=== PATIENT | female | born 1975 | race Caucasian/White ===

== ENCOUNTER 2018-07-12 15:55 | Emergency (ER) | payer MEDICAID ==
[2018-07-12] MEDS ORDERED: BUPR-474 PO (16:01)
--- NOTE | 2018-07-12 16:07 | ER Report ---
History and Physical Time Seen By MD: 16:00 Hx. of Stated Complaint: DIARRHEA FOR ONE WEEK. HPI/ROS CHIEF COMPLAINT: diarrhea HISTORY OF PRESENT ILLNESS: PT has had diarrhea for one week. Has one large episode a day. PT statse she has had no n/v. No abd pain. Pt statse she was at [facility] and felt light headed. Asked someone to get her something to drink and that person had ems come to check her out. PT was found to be tachycardic so they brought her to the emergency room. Pt has not had any recent travel. PT was on abx two weeks ago for bronchitis. pts bronchitis has improved. + chills no fever. REVIEW OF SYSTEMS: Constitutional: No fever, + chills. Eyes: No discharge. ENT: No sore throat. Cardiovascular: No chest pain, no palpitations. Respiratory: No cough, no shortness of breath. Gastrointestinal: No abdominal pain, no vomiting. + diarrhea Genitourinary: No hematuria. Musculoskeletal: No back pain. Skin: No rashes. Neurological: No headache. Allergies: Coded Allergies: No Known Drug Allergies (Unverified , 07/12/18) Home Meds Reported Medications Bupropion Hcl (WELLBUTRIN XL) 300 Mg Tab.er.24h, 300 MG PO QDAY, TAB 07/12/18 Past Medical/Surgical History Pmhx: htn, depression, bronchitis Pshx: tom pettit Reviewed Nurses Notes: Yes Old Medical Records Reviewed: Yes Hx Smoking: No Hx Alcohol Use: No Constitutional Vital Sign - Last 24 Hours 07/12/18 15:56 Temp 99.2 Pulse 109 Resp 18 B/P (MAP) 121/87 Pulse Ox 92 Physical Exam General Appearance: The patient is alert, has no immediate need for airway protection and no signs of toxicity. Eyes: Pupils equal and round no pallor or injection, EOMI ENT: no pharyngeal erythema or exudates, Mucous membranes are moist Respiratory: There are no retractions, lungs are clear to auscultation. Cardiovascular: + tachy but regular. pulses are equal and symmetrical Gastrointestinal: Abdomen is soft and non tender, no masses, bowel sounds normal, no guarding, no rigidity or rebound Neurological: Cranial nerves II-XII grossly intact, no sensory or motor loss Skin: Warm and dry, no rashes. Musculoskeletal: Neck is supple non tender, no vertebral tenderness Extremities are nontender, non swollen and have full range of motion. DIFFERENTIAL DIAGNOSIS: After history and physical exam differential diagnosis was considered for electrolyte abnl, dehydration, c.diff, infectious diarrhea Medical Decision Making Data Points Result Diagram: 07/12/18 1610 07/12/18 1610 Laboratory Hematology Test 07/12/18 16:10 Red Blood Count 5.64 M/uL (4.17-5.56) Mean Corpuscular Volume 65.7 fL (80.0-96.0) Mean Corpuscular Hemoglobin 21.0 pg (26.0-33.0) Mean Corpuscular Hemoglobin Concent 32.0 g/dL (32.0-36.0) Red Cell Distribution Width 17.4 % (11.5-14.5) Mean Platelet Volume 8.4 fL (7.2-11.1) Neutrophils (%) (Auto) 65.3 % (39.4-72.5) Lymphocytes (%) (Auto) 23.6 % (17.6-49.6) Monocytes (%) (Auto) 7.6 % (4.1-12.4) Eosinophils (%) (Auto) 2.1 % (0.4-6.7) Basophils (%) (Auto) 1.4 % (0.3-1.4) Nucleated RBC Relative Count (auto) 0.0 /100WBC Neutrophils # (Auto) 8.3 K/uL (2.0-7.4) Lymphocytes # (Auto) 3.0 K/uL (1.3-3.6) Monocytes # (Auto) 1.0 K/uL (0.3-1.0) Eosinophils # (Auto) 0.3 K/uL (0.0-0.5) Basophils # (Auto) 0.2 K/uL (0.0-0.1) Nucleated RBC Absolute Count (auto) 0.01 K/uL Peripheral Blood Smear Yes Y/N Sodium Level 137 mmol/L (137-145) Potassium Level 3.5 mmol/L (3.5-5.0) Chloride Level 101 mmol/L (98-107) Carbon Dioxide Level 22 mmol/L (22-31) Blood Urea Nitrogen 19 mg/dl (7-18) Creatinine 1.30 mg/dl (0.52-1.04) Glomerular Filtration Rate Calc 44.3 Random Glucose 92 mg/dl (75-110) Calcium Level 9.2 mg/dl (8.4-10.2) Total Bilirubin 0.6 mg/dl (0.2-1.3) Aspartate Amino Transf (AST/SGOT) 25 U/L (0-35) Alanine Aminotransferase (ALT/SGPT) 38 U/L (0-56) Alkaline Phosphatase 111 U/L (0-126) Total Protein 8.2 g/dl (6.3-8.2) Albumin 4.6 g/dl (3.5-5.0) Chemistry Test 07/12/18 16:10 White Blood Count 12.7 k/uL (4.5-11.0) Red Blood Count 5.64 M/uL (4.17-5.56) Hemoglobin 11.8 g/dL (12.0-16.0) Hematocrit 37.0 % (34.0-47.0) Mean Corpuscular Volume 65.7 fL (80.0-96.0) Mean Corpuscular Hemoglobin 21.0 pg (26.0-33.0) Mean Corpuscular Hemoglobin Concent 32.0 g/dL (32.0-36.0) Red Cell Distribution Width 17.4 % (11.5-14.5) Platelet Count 435 K/uL (150-450) Mean Platelet Volume 8.4 fL (7.2-11.1) Neutrophils (%) (Auto) 65.3 % (39.4-72.5) Lymphocytes (%) (Auto) 23.6 % (17.6-49.6) Monocytes (%) (Auto) 7.6 % (4.1-12.4) Eosinophils (%) (Auto) 2.1 % (0.4-6.7) Basophils (%) (Auto) 1.4 % (0.3-1.4) Nucleated RBC Relative Count (auto) 0.0 /100WBC Neutrophils # (Auto) 8.3 K/uL (2.0-7.4) Lymphocytes # (Auto) 3.0 K/uL (1.3-3.6) Monocytes # (Auto) 1.0 K/uL (0.3-1.0) Eosinophils # (Auto) 0.3 K/uL (0.0-0.5) Basophils # (Auto) 0.2 K/uL (0.0-0.1) Nucleated RBC Absolute Count (auto) 0.01 K/uL Peripheral Blood Smear Yes Y/N Glomerular Filtration Rate Calc 44.3 Calcium Level 9.2 mg/dl (8.4-10.2) Total Bilirubin 0.6 mg/dl (0.2-1.3) Aspartate Amino Transf (AST/SGOT) 25 U/L (0-35) Alanine Aminotransferase (ALT/SGPT) 38 U/L (0-56) Alkaline Phosphatase 111 U/L (0-126) Total Protein 8.2 g/dl (6.3-8.2) Albumin 4.6 g/dl (3.5-5.0) ED Course/Re-evaluation Clinical Indication for ER IV: Hydration, IV Access ED Course 07/12/2018 5:13:45 pm Pt has been unable to give a stool sample. Pt is starting to feel better with fluids. Will continue fluids since she is dehydrated. Pt would like to go home and fluids are running slow due to her current IV. Pt states she is okay with us starting a new IV so that they can possibly infuse quicker. If pt is unable to give a stool sample in the emergency room then we will send her home with collection containers. Decision to Disposition Date: Jul 12, 2018 Decision to Disposition Time: 18:00 Depart Departure Latest Vital Signs Vital Signs Date Time Temp Pulse Resp B/P (MAP) Pulse Ox O2 Delivery O2 Flow Rate FiO2 07/12/18 15:56 99.2 109 18 121/87 92 Impression: Primary Impression: Diarrhea Additional Impression: Dehydration Condition: Improved Disposition: HOME OR SELF-CARE Patient Instructions: Acute Diarrhea (GEN) Additional Instructions: It is important to stay hydrated when you have diarrhea. Drink plenty of water or gatorade. We are sending you home with a collection kit. Please bring back a sample to our lab so we can test it. Follow up with your doctor. Return as needed. Problem Qualifiers Primary Impression: Diarrhea Diarrhea type: unspecified type Qualified Codes: R19.7 - Diarrhea, unspecified MITCH FERRER DO Jul 12, 2018 16:07
[2018-07-12] MEDS ORDERED: NS(*) 0.9% 1000 ML BAG 1,000 ML IV ONE ×2 (16:10→16:40)
[2018-07-12 16:27] LABS: PLATELET COUNT, AUTOMATED 435 K/uL (150-450)
[2018-07-12 17:00] VITALS: BP 123/85
== END 2018-07-12 18:18 | disposition home or self-care (01) ==
LOC: ER 16:08
DX: R19.7 Diarrhea, unspecified (principal); E86.0 Dehydration
CPT/HCPCS: 85025; 96360; 96361; 99283; J7030; 82040; 82247; 82310; 82374; 82435; 82565; 82947; 84075; 84132; 84155; 84295; 84450; 84460; 84520

== ENCOUNTER → 2018-07-12 | Outpatient (CLI) | payer MEDICAID ==
[~2018-07-12] MED LIST: BUPR-474 PO
== END ==
LOC: AMB 15:23
PROVIDERS: ATTEND Nurse Practitioner
DX: R53.1 Weakness (principal); R00.0 Tachycardia, unspecified; R61 Generalized hyperhidrosis

== ENCOUNTER 2018-08-01 07:48 | Emergency (ER) | payer MEDICAID ==
[2018-08-01] MEDS ORDERED: OMEP20CA68 PO (07:57)
[2018-08-01] MEDS ORDERED: LISI-362 PO (07:57)
[2018-08-01] MEDS ORDERED: HYDR12.561 PO (07:57)
[2018-08-01] MEDS ORDERED: TRAZ300T17 PO (07:57)
[2018-08-01] MEDS ORDERED: BENZ100C4 PO (07:57)
[2018-08-01] MEDS ORDERED: AMOX-559 PO (07:57)
[2018-08-01] MEDS ORDERED: FLUO40CA76 PO (07:57)
[2018-08-01] MEDS ORDERED: PRED20TA6 PO (07:57)
[2018-08-01] MEDS ORDERED: ASPIRIN 81 MG CHEW PO ONE (08:00)
--- NOTE | 2018-08-01 08:21 | ER Report ---
History and Physical Time Seen By MD: 07:55 Hx. of Stated Complaint: "MY HEART IS FLUTTERING" X1 HOUR. REPORTS CONSTANT PAIN AND SOB. HPI/ROS CHIEF COMPLAINT: Palpitations HISTORY OF PRESENT ILLNESS: Patient is a 43-year-old female who presents emergency department with approximately 1-2 hours worth of palpitations and sensation of heart fluttering and chest. She has associated chest discomfort and some shortness of breath. Patient denies having similar symptoms in the past. She does admit to drinking a lot of caffeinated soda. She also admits to stress in her life. She recently moved here from [place] after being strange and from her . She has custody of her 4 children ranging from preteen 2 teenage. Its that her boys are "naughty" and causes her stress. Patient is also being treated for bronchitis with antibiotics and steroids. She has no primary care provider in the area as if he REVIEW OF SYSTEMS: Constitutional: No fever, no chills. Eyes: No discharge. ENT: No sore throat. Cardiovascular: Palpitations Respiratory: Dyspnea Gastrointestinal: No abdominal pain, no vomiting. Genitourinary: No hematuria. Musculoskeletal: No back pain. Skin: No rashes. Neurological: No headache. Allergies: Coded Allergies: No Known Drug Allergies (Unverified , 07/12/18) Home Meds Active Scripts Potassium Chloride (POTASSIUM CHLORIDE) 20 Meq Tab.er.prt, 20 MEQ PO QDAY for 30 Days, #30 TAB 0 Refills Prov:BENITO HER MD 08/01/18 Reported Medications Omeprazole Magnesium (OMEPRAZOLE MAGNESIUM) 20 Mg Capsule.dr, 20 MG PO BID, CAP 08/01/18 Amoxicillin/Pot Clav 875-125 Mg Tab (AUGMENTIN 875-125 TABLET) 1 Each Tablet, 1 TAB PO Q12H, TAB 08/01/18 Hydrochlorothiazide (HYDROCHLOROTHIAZIDE) 12.5 Mg Tablet, 1 TAB PO QDAY, TAB 08/01/18 Lisinopril (LISINOPRIL) 10 Mg Tablet, 10 MG PO QDAY, TAB 08/01/18 Prednisone (PREDNISONE) 20 Mg Tablet, 20 MG PO QDAY PRN for X5DAYS, TAB 08/01/18 Benzonatate 100 Mg Cap (TESSALON PERLE 100 MG CAP) 100 Mg Capsule, 200 MG PO TID, #15 CAP 08/01/18 Trazodone Hcl (TRAZODONE HCL) 300 Mg Tablet, 300 MG PO QHS 08/01/18 Fluoxetine Hcl (PROZAC) 40 Mg Capsule, 40 MG PO QDAY, CAPSULE 08/01/18 Bupropion Hcl (WELLBUTRIN XL) 300 Mg Tab.er.24h, 300 MG PO QDAY, TAB 07/12/18 Past Medical/Surgical History Past medical history for hypertension currently being treated for bronchitis, history of anxiety Hx Smoking: No Hx Alcohol Use: No Constitutional Vital Sign - Last 24 Hours 08/01/18 08/01/18 08/01/18 08/01/18 07:52 08:55 09:00 09:30 Temp 98.0 Pulse 80 87 Resp 16 14 B/P (MAP) 143/79 123/87 (99) 127/83 (98) 130/90 (103) Pulse Ox 96 O2 Delivery Room Air 08/01/18 08/01/18 08/01/18 10:00 10:30 11:00 Pulse 94 81 87 Resp 17 13 14 B/P (MAP) 144/106 (119) 124/77 (93) 115/61 (79) Pulse Ox 91 92 91 Physical Exam General/Constitutional: Patient is awake, alert, nontoxic and in no acute respiratory distress. Head: Normocephalic and atraumatic. Eyes: Conjunctival clear, . Sclera are clear and anicteric. Ears:External canals are clear. Tympanic membranes are clear with normal landmarks and light reflex. Nares: No rhinorrhea or bleeding. Turbinates are pink and moist. Oropharyngeal: Mucous membranes are moist. There is no pharyngeal erythema or exudate. There are no palatal petechiae. Uvula is midline and symmetrical. Neck: Supple, no adenopathy. Cardiovascular: Heart is regular rate and rhythm without audible murmurs, rubs or gallops. She does have occasional skipped beat Pulmonary: Lungs are clear to auscultation bilaterally. There are no wheezes, rales, or rhonchi. Chest rise is symmetrical Abdomen: Soft, nontender, no guarding or peritoneal signs. Extremities: No gross deformities, No peripheral cyanosis. Able to move all 4 extremities. Neuro: Alert and oriented X3, Skin: No rashes, skin is warm dry and well perfused. Medical Decision Making Data Points Result Diagram: 08/01/18 0811 08/01/18 0811 Laboratory Hematology Test 08/01/18 08:11 08/01/18 10:33 Red Blood Count 4.98 M/uL (4.17-5.56) Mean Corpuscular Volume 67.3 fL (80.0-96.0) Mean Corpuscular Hemoglobin 21.1 pg (26.0-33.0) Mean Corpuscular Hemoglobin Concent 31.3 g/dL (32.0-36.0) Red Cell Distribution Width 17.5 % (11.5-14.5) Mean Platelet Volume 8.6 fL (7.2-11.1) Neutrophils (%) (Auto) 57.7 % (39.4-72.5) Lymphocytes (%) (Auto) 33.5 % (17.6-49.6) Monocytes (%) (Auto) 6.1 % (4.1-12.4) Eosinophils (%) (Auto) 2.3 % (0.4-6.7) Basophils (%) (Auto) 0.4 % (0.3-1.4) Nucleated RBC Relative Count (auto) 0.0 /100WBC Neutrophils # (Auto) 5.8 K/uL (2.0-7.4) Lymphocytes # (Auto) 3.4 K/uL (1.3-3.6) Monocytes # (Auto) 0.6 K/uL (0.3-1.0) Eosinophils # (Auto) 0.2 K/uL (0.0-0.5) Basophils # (Auto) 0.0 K/uL (0.0-0.1) Nucleated RBC Absolute Count (auto) 0.00 K/uL Peripheral Blood Smear Yes Y/N Sodium Level 138 mmol/L (137-145) Potassium Level 2.9 mmol/L (3.5-5.0) Chloride Level 100 mmol/L (98-107) Carbon Dioxide Level 25 mmol/L (22-31) Blood Urea Nitrogen 15 mg/dl (7-18) Creatinine 1.00 mg/dl (0.52-1.04) Glomerular Filtration Rate Calc 60.0 Random Glucose 112 mg/dl (75-110) Calcium Level 8.9 mg/dl (8.4-10.2) Magnesium Level 1.9 mg/dl (1.7-2.2) Total Bilirubin 0.3 mg/dl (0.2-1.3) Aspartate Amino Transf (AST/SGOT) 18 U/L (0-35) Alanine Aminotransferase (ALT/SGPT) 24 U/L (0-56) Alkaline Phosphatase 73 U/L (0-126) Total Protein 6.9 g/dl (6.3-8.2) Albumin 3.9 g/dl (3.5-5.0) Human Chorionic Gonadotropin, Qual Negative (NEGATIVE) Troponin I < 0.012 ng/ml Chemistry Test 08/01/18 08:11 08/01/18 10:33 White Blood Count 10.1 k/uL (4.5-11.0) Red Blood Count 4.98 M/uL (4.17-5.56) Hemoglobin 10.5 g/dL (12.0-16.0) Hematocrit 33.5 % (34.0-47.0) Mean Corpuscular Volume 67.3 fL (80.0-96.0) Mean Corpuscular Hemoglobin 21.1 pg (26.0-33.0) Mean Corpuscular Hemoglobin Concent 31.3 g/dL (32.0-36.0) Red Cell Distribution Width 17.5 % (11.5-14.5) Platelet Count 341 K/uL (150-450) Mean Platelet Volume 8.6 fL (7.2-11.1) Neutrophils (%) (Auto) 57.7 % (39.4-72.5) Lymphocytes (%) (Auto) 33.5 % (17.6-49.6) Monocytes (%) (Auto) 6.1 % (4.1-12.4) Eosinophils (%) (Auto) 2.3 % (0.4-6.7) Basophils (%) (Auto) 0.4 % (0.3-1.4) Nucleated RBC Relative Count (auto) 0.0 /100WBC Neutrophils # (Auto) 5.8 K/uL (2.0-7.4) Lymphocytes # (Auto) 3.4 K/uL (1.3-3.6) Monocytes # (Auto) 0.6 K/uL (0.3-1.0) Eosinophils # (Auto) 0.2 K/uL (0.0-0.5) Basophils # (Auto) 0.0 K/uL (0.0-0.1) Nucleated RBC Absolute Count (auto) 0.00 K/uL Peripheral Blood Smear Yes Y/N Glomerular Filtration Rate Calc 60.0 Calcium Level 8.9 mg/dl (8.4-10.2) Magnesium Level 1.9 mg/dl (1.7-2.2) Total Bilirubin 0.3 mg/dl (0.2-1.3) Aspartate Amino Transf (AST/SGOT) 18 U/L (0-35) Alanine Aminotransferase (ALT/SGPT) 24 U/L (0-56) Alkaline Phosphatase 73 U/L (0-126) Total Protein 6.9 g/dl (6.3-8.2) Albumin 3.9 g/dl (3.5-5.0) Human Chorionic Gonadotropin, Qual Negative (NEGATIVE) Troponin I < 0.012 ng/ml EKG/Imaging EKG Interpretation EKG shows normal sinus rhythm with a ventricular rate of 74 bpm. There is one PVC noted otherwise normal-appearing EKG. No prior EKGs for comparison. Monitor Interpretation: NSR with PVCs Imaging FACILITY: [facility] PATIENT NAME: Marielena Thompson : 1975 MR: [id number] V: [id number] EXAM DATE: ORDERING PHYSICIAN: BENITO HER TECHNOLOGIST: Location: [facility] Patient: Marielena Thompson : 1975 Visit/Account:[id number] Date of Sevice: 08/01/2018 Technique: CHEST PA AND LAT HISTORY: Chest pain Comparison studies: None FINDINGS: Vascular crowding versus mild right midlung atelectasis is noted. No acute airspace consolidation. No pleural effusion or pneumothorax. The cardiomediastinal silhouette is unremarkable. IMPRESSION: 1. No acute cardiopulmonary process. Report Dictated By: Baldomero Shelton DO at 08/01/2018 8:42 AM Report E-Signed By: Baldomero Shelton DO at 08/01/2018 8:43 AM WSN:[email or web address] ED Course/Re-evaluation Clinical Indication for ER IV: IV Access ED Course 08/01/2018 8:20:49 am patient with PVCs on rhythm strip and EKG likely the cause of the patient's fluttering. Plan at this time will be cardiac workup including delta troponin at 2 hours. We will also obtain chest x-ray along CBC comprehensive metabolic panel. We'll give a dose of aspirin. 08/01/2018 8:44:35 am potassium returned at 2.9 mEq per liter. Patient is on hydrochlorothiazide. Suspect patient's palpitations could be due to low potassium. Plan at this time will be to give oral potassium load as well as IV potassium. I'll likely will discharge the patient on potassium and have her follow-up within the 30 day time frame for repeat potassium check. Decision to Disposition Date: Aug 01, 2018 Decision to Disposition Time: 11:09 Depart Departure Latest Vital Signs Vital Signs Date Time Temp Pulse Resp B/P (MAP) Pulse Ox O2 Delivery O2 Flow Rate FiO2 08/01/18 11:00 87 14 115/61 (79) 91 08/01/18 07:52 98.0 Room Air Impression: Primary Impression: Premature ventricular beats Additional Impression: Hypokalemia Condition: Improved Disposition: HOME OR SELF-CARE Referrals: RACHEL SOLORZANO MD Call to schedule an initial appointment and follow-up for establishing a new primary care provider within the next 30 days. New Scripts Potassium Chloride (POTASSIUM CHLORIDE) 20 Meq Tab.er.prt 20 MEQ PO QDAY for 30 Days, #30 TAB 0 Refills Prov: BENITO HER MD 08/01/18 Patient Instructions: Hypokalemia (ED), Palpitations (DC) Additional Instructions: Continue to take all your medications as directed. Take your potassium tablets, one daily for the next 30 days. Decrease caffeine intake. Call to schedule an initial appointment with to establish care as a primary care provider Problem Qualifiers BENITO HER MD Aug 01, 2018 08:21
[2018-08-01 08:23] LABS: PLATELET COUNT, AUTOMATED 341 K/uL (150-450)
[2018-08-01] MEDS ORDERED: KCL (*) 20 MEQ/100 ML PREMIX 100 ML IV ONE (08:40)
[2018-08-01] MEDS ORDERED: POTASSIUM CHL 20 MEQ TABCR PO SCH (08:40)
--- NOTE | 2018-08-01 08:47 | RADIOLOGY IMAGING REPORT ---
FACILITY: [facility] [place] PATIENT NAME: Marielena Thompson : 1975 MR: [id number] V: [id number] EXAM DATE: ORDERING PHYSICIAN: BENITO HER TECHNOLOGIST: Location: [facility] [place] Patient: Marielena Thompson : 1975 Visit/Account:[id number] Date of Sevice: 08/01/2018 Technique: CHEST PA AND LAT HISTORY: Chest pain Comparison studies: None FINDINGS: Vascular crowding versus mild right midlung atelectasis is noted. No acute airspace consol idation. No pleural effusion or pneumothorax. The cardiomediastinal silhouette is unremarkable. IMPRESSION: 1. No acute cardiopulmonary process. Report Dictated By: Baldomero Shelton DO at 08/01/2018 8:42 AM Report E-Signed By: Baldomero Shelton DO at 08/01/2018 8:43 AM WSN:[email or web address]
[2018-08-01] MEDS ORDERED: NS(*) 0.9% 1000 ML BAG 1,000 ML IV ONE (08:50)
[2018-08-01 11:00] VITALS: BP 115/61
[2018-08-01] MEDS ORDERED: POTA20TA94 PO (11:12)
--- NOTE | 2018-08-01 11:38 | EKG ---
FACILITY: [facility] [place] PATIENT NAME: SAUMYA DIAZ : [id number] MR: [id number] V: [id number] EXAM DATE: ORDERING PHYSICIAN: BENITO HER TECHNOLOGIST: Test Reason : cardiac problem Blood Pressure : / mmHG Vent. Rate : 074 BPM Atrial Rate : 074 BPM P-R Int : 158 ms QRS Dur : 092 ms QT Int : 398 ms P-R-T Axes : 040 008 030 degrees QTc Int : 441 ms Sinus rhythm with occasional premature ventricular complexes Otherwise normal ECG No previous ECGs available Confirmed by Romel Alexander ([id number] on 08/01/2018 7:58:38 PM Referred By: Confirmed By:Romel Hoff
== END 2018-08-01 11:36 | disposition home or self-care (01) ==
LOC: ER 07:51
DX: I49.3 Ventricular premature depolarization (principal); E87.6 Hypokalemia
CPT/HCPCS: 36415; 71046; 83735; 84484; 84703; 85025; 93005; 96365; 96366; 99284; J3480; J7030; 82040; 82247; 82310; 82374; 82435; 82565; 82947; 84075; 84132; 84155; 84295; 84450; 84460; 84520

== ENCOUNTER 2018-08-13 10:45 | Emergency (ER) | payer MEDICAID ==
[~2018-08-13 10:45] MED LIST changes: -ALB18R INH; -CALC-521 PO
[2018-08-13] MEDS ORDERED: ALB18R INH (10:56)
--- NOTE | 2018-08-13 10:56 | ER Report ---
History and Physical Time Seen By MD: 10:56 Hx. of Stated Complaint: pt reports CP/SOB started 2 hours ago, also reports feeling dizzy and flushed HPI/ROS CHIEF COMPLAINT: Chest discomfort, shortness breath HISTORY OF PRESENT ILLNESS: Patient is a 43-year-old female here with complaints of 2 hour history of "funny feeling in her chest" recent diagnosis of hypokalemia on August 01 on her last ED visit. Patient has a history of hypertension on lisinopril hydrochlorothiazide, denies history of hyperlipidemia, history of diabetes, prior cardiac issues. She is taking potassium supplementation as prescribed and her previous visit. Patient denies chest pain at current time, headache, blurred vision, abdominal pain, nausea, vomiting. Patient otherwise only takes antidepressants. Patient reports that the funny feeling in her chest that she described previously started about 2 hours ago and is now absent but she does not recall when it stopped. Patient does report having a recent episode of bronchitis which has since resolved but she does have some residual shortness of breath. Patient is also concerned that she might have Lyme disease because she was recently in [place] where she reports Lyme disease is relatively prevalent. Patient reports significant life stressors with a recent divorce and taking care of her 4 children. REVIEW OF SYSTEMS: Constitutional: No fever, no chill, + feeling tired Eyes: No discharge. ENT: No sore throat. Cardiovascular: No chest pain, + palpitations (funny feeling in chest). Respiratory: No cough, + shortness of breath. Gastrointestinal: No abdominal pain, no vomiting. Genitourinary: No hematuria. Musculoskeletal: No back pain, + joint aches Skin: No rashes. Neurological: No headache. Allergies: Coded Allergies: No Known Drug Allergies (Unverified , 08/13/18) Home Meds Active Scripts Potassium Chloride (POTASSIUM CHLORIDE) 20 Meq Tab.er.prt, 20 MEQ PO QDAY for 30 Days, #30 TAB 0 Refills Prov:BENITO HER MD 08/01/18 Reported Medications Calcium Carbonate (TUMS) 300 Mg Tab.chew, 300 MG PO PRN, TAB.CHEW 08/13/18 Albuterol Sulfate (VENTOLIN HFA) 18 Gm Inh, 1-2 PUFF INH PRN, INH 08/13/18 Omeprazole Magnesium (OMEPRAZOLE MAGNESIUM) 20 Mg Capsule.dr, 20 MG PO BID, CAP 08/01/18 Hydrochlorothiazide (HYDROCHLOROTHIAZIDE) 12.5 Mg Tablet, 1 TAB PO QDAY, TAB 08/01/18 Lisinopril (LISINOPRIL) 10 Mg Tablet, 10 MG PO QDAY, TAB 08/01/18 Trazodone Hcl (TRAZODONE HCL) 300 Mg Tablet, 300 MG PO QHS 08/01/18 Fluoxetine Hcl (PROZAC) 40 Mg Capsule, 40 MG PO QDAY, CAPSULE 08/01/18 Bupropion Hcl (WELLBUTRIN XL) 300 Mg Tab.er.24h, 300 MG PO QDAY, TAB 07/12/18 Discontinued Reported Medications Amoxicillin/Pot Clav 875-125 Mg Tab (AUGMENTIN 875-125 TABLET) 1 Each Tablet, 1 TAB PO Q12H, TAB 08/01/18 Prednisone (PREDNISONE) 20 Mg Tablet, 20 MG PO QDAY PRN for X5DAYS, TAB 08/01/18 Benzonatate 100 Mg Cap (TESSALON PERLE 100 MG CAP) 100 Mg Capsule, 200 MG PO TID, #15 CAP 08/01/18 Hx Smoking: No Hx Alcohol Use: No Constitutional Vital Sign - Last 24 Hours 08/13/18 08/13/18 08/13/18 08/13/18 10:49 10:49 11:00 11:15 Temp 98.7 Pulse 112 Resp 16 14 32 B/P (MAP) 153/98 153/98 (116) 133/85 (101) Pulse Ox 96 96 O2 Delivery Room Air 08/13/18 08/13/18 08/13/18 08/13/18 11:30 11:45 12:00 12:15 Pulse 105 92 104 106 Resp 16 14 16 18 B/P (MAP) 133/103 (113) 155/103 (120) Pulse Ox 94 92 93 93 08/13/18 12:30 Pulse 96 Resp 23 Pulse Ox 94 Physical Exam General Appearance: The patient is alert, has no immediate need for airway protection and no signs of toxicity. No acute distress Eyes: Pupils equal and round no pallor or injection. ENT, Mouth: Mucous membranes are moist. Respiratory: There are no retractions, lungs are clear to auscultation. Cardiovascular: Regular rate and rhythm. Gastrointestinal: Abdomen is soft and non tender, no masses, bowel sounds normal. Neurological: Moving all extremities, no focal neurological deficits Skin: Warm and dry, no rashes. Musculoskeletal: Neck is supple non tender. Extremities are nontender, nonswollen and have full range of motion. DIFFERENTIAL DIAGNOSIS: After history and physical exam differential diagnosis was considered for electrolyte abnormalities, ACS, arrhythmia, dehydration, anxiety, pneumonia Medical Decision Making Data Points Result Diagram: 08/13/18 1100 08/13/18 1100 Laboratory Hematology Test 08/13/18 11:00 08/13/18 11:07 08/13/18 11:40 08/13/18 12:57 Red Blood Count 5.42 M/uL (4.17-5.56) Mean Corpuscular Volume 66.2 fL (80.0-96.0) Mean Corpuscular Hemoglobin 21.0 pg (26.0-33.0) Mean Corpuscular Hemoglobin Concent 31.7 g/dL (32.0-36.0) Red Cell Distribution Width 17.6 % (11.5-14.5) Mean Platelet Volume 8.6 fL (7.2-11.1) Neutrophils (%) (Auto) 65.2 % (39.4-72.5) Lymphocytes (%) (Auto) 24.5 % (17.6-49.6) Monocytes (%) (Auto) 6.9 % (4.1-12.4) Eosinophils (%) (Auto) 2.1 % (0.4-6.7) Basophils (%) (Auto) 1.3 % (0.3-1.4) Nucleated RBC Relative Count (auto) 0.0 /100WBC Neutrophils # (Auto) 6.2 K/uL (2.0-7.4) Lymphocytes # (Auto) 2.3 K/uL (1.3-3.6) Monocytes # (Auto) 0.7 K/uL (0.3-1.0) Eosinophils # (Auto) 0.2 K/uL (0.0-0.5) Basophils # (Auto) 0.1 K/uL (0.0-0.1) Nucleated RBC Absolute Count (auto) 0.00 K/uL Sodium Level 137 mmol/L (137-145) Potassium Level 3.8 mmol/L (3.5-5.0) Chloride Level 101 mmol/L (98-107) Carbon Dioxide Level 23 mmol/L (22-31) Blood Urea Nitrogen 18 mg/dl (7-18) Creatinine 1.00 mg/dl (0.52-1.04) Glomerular Filtration Rate Calc 60.0 Random Glucose 123 mg/dl (75-110) Calcium Level 9.6 mg/dl (8.4-10.2) Total Bilirubin 0.5 mg/dl (0.2-1.3) Aspartate Amino Transf (AST/SGOT) 26 U/L (0-35) Alanine Aminotransferase (ALT/SGPT) 38 U/L (0-56) Alkaline Phosphatase 105 U/L (0-126) Total Protein 7.8 g/dl (6.3-8.2) Albumin 4.2 g/dl (3.5-5.0) Human Chorionic Gonadotropin, Qual Negative (NEGATIVE) Urine Color Yellow Urine Clarity Slightly-cloudy Urine pH 6 pH (4.8-9.5) Urine Specific [place] 1.030 Urine Protein Trace mg/dL (NEGATIVE) Urine Glucose (UA) Negative mg/dL (NEGATIVE) Urine Ketones Negative mg/dL (NEGATIVE) Urine Blood Negative (NEGATIVE) Urine Nitrite Negative (NEGATIVE) Urine Bilirubin Negative (NEGATIVE) Urine Urobilinogen 0.2 mg/dL (0.2-1.9) Urine Leukocyte Esterase Negative (NEGATIVE) Urine RBC <1 /HPF (0-2/HPF) Urine WBC 2 /HPF (0-5/HPF) Urine Squamous Epithelial Cells Few /LPF (</=FEW) Urine Bacteria Few /HPF (NONE-FEW) Urine Hyaline Casts Many /LPF (NONE-FEW) Urine Mucus Few /HPF (NONE-FEW) Troponin I < 0.012 ng/ml Chemistry Test 08/13/18 11:00 08/13/18 11:07 08/13/18 11:40 08/13/18 12:57 White Blood Count 9.5 k/uL (4.5-11.0) Red Blood Count 5.42 M/uL (4.17-5.56) Hemoglobin 11.4 g/dL (12.0-16.0) Hematocrit 35.9 % (34.0-47.0) Mean Corpuscular Volume 66.2 fL (80.0-96.0) Mean Corpuscular Hemoglobin 21.0 pg (26.0-33.0) Mean Corpuscular Hemoglobin Concent 31.7 g/dL (32.0-36.0) Red Cell Distribution Width 17.6 % (11.5-14.5) Platelet Count 402 K/uL (150-450) Mean Platelet Volume 8.6 fL (7.2-11.1) Neutrophils (%) (Auto) 65.2 % (39.4-72.5) Lymphocytes (%) (Auto) 24.5 % (17.6-49.6) Monocytes (%) (Auto) 6.9 % (4.1-12.4) Eosinophils (%) (Auto) 2.1 % (0.4-6.7) Basophils (%) (Auto) 1.3 % (0.3-1.4) Nucleated RBC Relative Count (auto) 0.0 /100WBC Neutrophils # (Auto) 6.2 K/uL (2.0-7.4) Lymphocytes # (Auto) 2.3 K/uL (1.3-3.6) Monocytes # (Auto) 0.7 K/uL (0.3-1.0) Eosinophils # (Auto) 0.2 K/uL (0.0-0.5) Basophils # (Auto) 0.1 K/uL (0.0-0.1) Nucleated RBC Absolute Count (auto) 0.00 K/uL Glomerular Filtration Rate Calc 60.0 Calcium Level 9.6 mg/dl (8.4-10.2) Total Bilirubin 0.5 mg/dl (0.2-1.3) Aspartate Amino Transf (AST/SGOT) 26 U/L (0-35) Alanine Aminotransferase (ALT/SGPT) 38 U/L (0-56) Alkaline Phosphatase 105 U/L (0-126) Total Protein 7.8 g/dl (6.3-8.2) Albumin 4.2 g/dl (3.5-5.0) Human Chorionic Gonadotropin, Qual Negative (NEGATIVE) Urine Color Yellow Urine Clarity Slightly-cloudy Urine pH 6 pH (4.8-9.5) Urine Specific [place] 1.030 Urine Protein Trace mg/dL (NEGATIVE) Urine Glucose (UA) Negative mg/dL (NEGATIVE) Urine Ketones Negative mg/dL (NEGATIVE) Urine Blood Negative (NEGATIVE) Urine Nitrite Negative (NEGATIVE) Urine Bilirubin Negative (NEGATIVE) Urine Urobilinogen 0.2 mg/dL (0.2-1.9) Urine Leukocyte Esterase Negative (NEGATIVE) Urine RBC <1 /HPF (0-2/HPF) Urine WBC 2 /HPF (0-5/HPF) Urine Squamous Epithelial Cells Few /LPF (</=FEW) Urine Bacteria Few /HPF (NONE-FEW) Urine Hyaline Casts Many /LPF (NONE-FEW) Urine Mucus Few /HPF (NONE-FEW) Troponin I < 0.012 ng/ml Urinalysis Test 08/13/18 11:07 Urine Color Yellow Urine Clarity Slightly-cloudy Urine pH 6 pH (4.8-9.5) Urine Specific [place] 1.030 Urine Protein Trace mg/dL (NEGATIVE) Urine Glucose (UA) Negative mg/dL (NEGATIVE) Urine Ketones Negative mg/dL (NEGATIVE) Urine Blood Negative (NEGATIVE) Urine Nitrite Negative (NEGATIVE) Urine Bilirubin Negative (NEGATIVE) Urine Urobilinogen 0.2 mg/dL (0.2-1.9) Urine Leukocyte Esterase Negative (NEGATIVE) Urine RBC <1 /HPF (0-2/HPF) Urine WBC 2 /HPF (0-5/HPF) Urine Squamous Epithelial Cells Few /LPF (</=FEW) Urine Bacteria Few /HPF (NONE-FEW) Urine Hyaline Casts Many /LPF (NONE-FEW) Urine Mucus Few /HPF (NONE-FEW) EKG/Imaging EKG Interpretation 12 lead EKG: Normal sinus rhythm, ventricular rate 100, QTc interval 446, no ischemic changes or ST abnormalities or arrhythmias. Rhythm: normal sinus rhythm [place]: normal QRS: normal ST segments: normal Monitor Interpretation: Normal Sinus Rhythm Imaging Location: [facility] - [place] Patient: Marielena Thompson : 1975 Visit/Account:[id number] Date of Sevice: 08/13/2018 Exam type: CHEST PA AND LAT History: Chest pain Comparison: August 01, 2018. Findings: The lungs are free of acute effusions, infiltrates or edema. There is no evidence of a pneumothorax or pneumomediastinum. The cardiac silhouette is normal in size. The trachea is midline. There is a small hiatal hernia. IMPRESSION: 1. No acute cardiac pulmonary process is seen ED Course/Re-evaluation ED Course Patient is a 43-year-old female here with complaints of "funny feeling in the chest" which has since ceased after starting approximately 2 hours prior to arrival. Patient also reports concurrent shortness of breath which is been present recently. She does have recent history of bronchitis status post treatment. She was also seen on August 01 and diagnosed with hypokalemia and sent home with prescription for potassium supplementation which she reports being compliant with. Patient is afebrile, hemodynamically stable at time of evaluation. EKG showed no acute arrhythmias or abnormal findings. Initial troponin was negative, repeat troponin was scheduled for 1304 hours after the start of patient's symptoms. Potassium was found to be 3.8. Patient was concerned that she had exposure to Lyme while in [place] so a Lyme test was sent out, patient was advised to follow-up with her PCP to obtain results or to call in.Second troponin was negative making ACS unlikely at this time. Decision to Disposition Date: Aug 13, 2018 Decision to Disposition Time: 13:32 Depart Departure Latest Vital Signs Vital Signs Date Time Temp Pulse Resp B/P (MAP) Pulse Ox O2 Delivery O2 Flow Rate FiO2 08/13/18 12:30 96 23 94 08/13/18 12:00 155/103 (120) 08/13/18 10:49 98.7 Room Air Impression: Primary Impression: Palpitations Additional Impression: Shortness of breath Condition: Improved Disposition: HOME OR SELF-CARE Patient Instructions: Dyspnea (ED), Palpitations (ED) Additional Instructions: Please drink plenty of water. Please follow-up with your family doctor in the next week. Please return if you have recurrent symptoms, fevers, increased shortness breath, weakness. Problem Qualifiers GERARDO MOYER DO Aug 13, 2018 10:56
[2018-08-13] MEDS ORDERED: CALC-521 PO (10:57)
--- NOTE | 2018-08-13 11:04 | EKG ---
FACILITY: [facility] - [place] PATIENT NAME: SAUMYA DIAZ : [id number] MR: [id number] V: [id number] EXAM DATE: ORDERING PHYSICIAN: GERARDO MOYER TECHNOLOGIST: KRISSY Stringer Reason : HYOPK Blood Pressure : / mmHG Vent. Rate : 100 BPM Atrial Rate : 100 BPM P-R Int : 148 ms QRS Dur : 086 ms QT Int : 346 ms P-R-T Axes : 051 007 047 degrees QTc Int : 446 ms Sinus rhythm Borderline tachycardia No acute appearing findings otherwise When compared with ECG of 01-AUG-2018 07:58, premature ventricular complexes are no longer present Confirmed by DAX CABALLERO ([id number]) on 08/13/2018 11:18:04 AM Referred By: JOÃO Confirmed By:DAX CABALLERO
[2018-08-13 11:10] LABS: PLATELET COUNT, AUTOMATED 402 K/uL (150-450)
--- NOTE | 2018-08-13 11:26 | RADIOLOGY IMAGING REPORT ---
FACILITY: [facility] PATIENT NAME: Marielena Thompson : 1975 MR: [id number] V: [id number] EXAM DATE: ORDERING PHYSICIAN: GERARDO MOYER TECHNOLOGIST: Location: [facility] Patient: Marielena Thompson : 1975 Visit/Account:[id number] Date of Sevice: 08/13/2018 Exam type: CHEST PA AND LAT History: Chest pain Comparison: August 01, 2018. Findings: The lungs are free of acute effusions, infiltrates or edema. There is no evidence of a pneumothorax or pneumomediastinum. The cardiac silhouette is normal in size. The trachea is midline. There is a small hiatal hernia. IMPRESSION: 1. No acute cardiac pulmonary process is seen Report Dictated By: Micaela Ortez MD at 08/13/2018 11:21 AM Report E-Signed By: Micaela Ortez MD at 08/13/2018 11:21 AM WSN:[email or web address]
[2018-08-13 13:31] VITALS: BP 122/72
== END 2018-08-13 13:45 | disposition home or self-care (01) ==
LOC: ER 10:56
DX: R00.2 Palpitations (principal); R06.02 Shortness of breath
CPT/HCPCS: 36415; 71046; 81001; 82040; 82247; 82310; 82374; 82435; 82565; 82947; 84075; 84132; 84155; 84295; 84450; 84460; 84484; 84520; 84703; 85025; 86618; 93005; 99284

== ENCOUNTER → 2018-08-13 | Outpatient (CLI) | payer MEDICAID ==
[~2018-08-13] MED LIST changes: +ALB18R INH; +AMOX-559 PO; +BENZ100C4 PO; +CALC-521 PO; +FLUO40CA76 PO; +HYDR12.561 PO; +LISI-362 PO; +OMEP20CA68 PO; +POTA20TA94 PO; +PRED20TA6 PO; +TRAZ300T17 PO
== END ==
LOC: AMB 10:33
PROVIDERS: ATTEND Nurse Practitioner
DX: R07.89 Other chest pain (principal); R00.0 Tachycardia, unspecified
CPT/HCPCS: A0425; A0427

== ENCOUNTER 2018-10-16 14:11 | Emergency (ER) | payer MEDICAID ==
[~2018-10-16 14:11] MED LIST changes: +ALB18R INH; +CALC-521 PO
--- NOTE | 2018-10-16 14:27 | ER Report ---
History and Physical Time Seen By MD: 14:28 HPI/ROS CHIEF COMPLAINT: Nausea and vomiting, heartburn HISTORY OF PRESENT ILLNESS: This is a 43-year-old female. She does have a history of heartburn and reflux. Has not been on her medicines for this for a while and is having worsening symptoms. When this is happened in the past, she has had episodes of vomiting and she feels like this is what is going on today. She denies any fevers or chills. Denies any major abdominal pain but does have some discomfort. Denies any shortness of breath or chest pain at this time. Allergies: Coded Allergies: No Known Drug Allergies (Unverified , 08/13/18) Home Meds Active Scripts Omeprazole (OMEPRAZOLE) 20 Mg Capsule.dr, 1 CAP PO QDAY, #30 CAP 0 Refills Prov:LUCILLE MORALES MD 10/16/18 Ondansetron (ONDANSETRON ODT) 4 Mg Tab.rapdis, 4 MG PO Q6H PRN for NAUSEA/VOMITING, #20 TAB 0 Refills Prov:LUCILLE MORALES MD 10/16/18 Potassium Chloride (POTASSIUM CHLORIDE) 20 Meq Tab.er.prt, 20 MEQ PO QDAY for 30 Days, #30 TAB 0 Refills Prov:BENITO HER MD 08/01/18 Reported Medications Calcium Carbonate (TUMS) 300 Mg Tab.chew, 300 MG PO PRN, TAB.CHEW 08/13/18 Albuterol Sulfate (VENTOLIN HFA) 18 Gm Inh, 1-2 PUFF INH PRN, INH 08/13/18 Omeprazole Magnesium (OMEPRAZOLE MAGNESIUM) 20 Mg Capsule.dr, 20 MG PO BID, CAP 08/01/18 Hydrochlorothiazide (HYDROCHLOROTHIAZIDE) 12.5 Mg Tablet, 1 TAB PO QDAY, TAB 08/01/18 Lisinopril (LISINOPRIL) 10 Mg Tablet, 10 MG PO QDAY, TAB 08/01/18 Trazodone Hcl (TRAZODONE HCL) 300 Mg Tablet, 300 MG PO QHS 08/01/18 Fluoxetine Hcl (PROZAC) 40 Mg Capsule, 40 MG PO QDAY, CAPSULE 08/01/18 Bupropion Hcl (WELLBUTRIN XL) 300 Mg Tab.er.24h, 300 MG PO QDAY, TAB 07/12/18 Reviewed Nurses Notes: Yes Hx Smoking: No Hx Alcohol Use: No Constitutional Vital Sign - Last 24 Hours 10/16/18 10/16/18 10/16/18 10/16/18 14:11 14:27 14:27 14:41 Temp 98.6 Pulse ??? 109 103 Resp 20 B/P (MAP) 142/89 (106) 142/89 Pulse Ox 96 100 O2 Delivery Room Air 10/16/18 10/16/18 10/16/18 10/16/18 15:56 16:00 16:30 17:00 Pulse 101 103 B/P (MAP) 112/74 (87) 114/99 (104) 117/90 (99) 110/75 (87) Pulse Ox 96 97 Intake and Output 10/16/18 10/16/18 10/17/18 14:58 22:58 06:58 Intake Total 1000 ml Balance 1000 ml Physical Exam General Appearance: The patient is alert. No acute distress. Eyes: Pupils are equal, round. No pallor, injection or icterus. ENT: Mucous membranes are moist. Normal oral mucosa. Posterior oropharynx is normal. Neck: Supple and non tender. Respiratory: Lungs are clear to auscultation. Cardiovascular: Regular rate and rhythm. No murmurs, gallops or rubs. Normal capillary refill. Gastrointestinal: Abdomen is soft, discomfort in the epigastric area, otherwise negative. Nondistended. Normal active bowel sounds. No costovertebral angle tenderness with percussion. Neurological: Alert and oriented x3. DIFFERENTIAL DIAGNOSIS: After history and physical exam, differential diagnosis was considered for nausea and vomiting, likely due to reflux problems that she is had in the past but we'll look for other condition such as cardiac or metabolic Medical Decision Making Data Points Result Diagram: 10/16/18 1459 10/16/18 1459 Laboratory Hematology Test 10/16/18 14:25 10/16/18 14:26 10/16/18 14:59 Urine Color Yellow Urine Clarity Slightly-cloudy Urine pH 6.0 pH (4.8-9.5) Urine Specific [place] 1.019 Urine Protein Negative mg/dL (NEGATIVE) Urine Glucose (UA) Negative mg/dL (NEGATIVE) Urine Ketones Negative mg/dL (NEGATIVE) Urine Blood Negative (NEGATIVE) Urine Nitrite Negative (NEGATIVE) Urine Bilirubin Negative (NEGATIVE) Urine Urobilinogen 2.0 mg/dL (0.2-1.9) Urine Leukocyte Esterase Small (NEGATIVE) Urine RBC None /HPF (0-2/HPF) Urine WBC 1 /HPF (0-5/HPF) Urine Squamous Epithelial Cells Many /LPF (</=FEW) Urine Amorphous Crystals Few /HPF Urine Bacteria Few /HPF (NONE-FEW) Urine Mucus Few /HPF (NONE-FEW) Urine HCG, Qualitative Negative (NEGATIVE) Red Blood Count 4.64 M/uL (4.17-5.56) Mean Corpuscular Volume 65.0 fL (80.0-96.0) Mean Corpuscular Hemoglobin 20.1 pg (26.0-33.0) Mean Corpuscular Hemoglobin Concent 30.9 g/dL (32.0-36.0) Red Cell Distribution Width 18.2 % (11.5-14.5) Mean Platelet Volume 8.8 fL (7.2-11.1) Neutrophils (%) (Auto) 62.6 % (39.4-72.5) Lymphocytes (%) (Auto) 23.0 % (17.6-49.6) Monocytes (%) (Auto) 10.6 % (4.1-12.4) Eosinophils (%) (Auto) 2.4 % (0.4-6.7) Basophils (%) (Auto) 1.4 % (0.3-1.4) Nucleated RBC Relative Count (auto) 0.0 /100WBC Neutrophils # (Auto) 7.2 K/uL (2.0-7.4) Lymphocytes # (Auto) 2.7 K/uL (1.3-3.6) Monocytes # (Auto) 1.2 K/uL (0.3-1.0) Eosinophils # (Auto) 0.3 K/uL (0.0-0.5) Basophils # (Auto) 0.2 K/uL (0.0-0.1) Nucleated RBC Absolute Count (auto) 0.00 K/uL Peripheral Blood Smear Yes Y/N Sodium Level 136 mmol/L (137-145) Potassium Level 3.3 mmol/L (3.5-5.0) Chloride Level 102 mmol/L (98-107) Carbon Dioxide Level 24 mmol/L (22-31) Blood Urea Nitrogen 17 mg/dl (7-18) Creatinine 0.90 mg/dl (0.52-1.04) Glomerular Filtration Rate Calc > 60.0 Random Glucose 101 mg/dl (75-110) Calcium Level 8.6 mg/dl (8.4-10.2) Total Bilirubin 0.3 mg/dl (0.2-1.3) Aspartate Amino Transf (AST/SGOT) 18 U/L (0-35) Alanine Aminotransferase (ALT/SGPT) 33 U/L (0-56) Alkaline Phosphatase 69 U/L (0-126) Troponin I < 0.012 ng/ml Total Protein 6.2 g/dl (6.3-8.2) Albumin 3.4 g/dl (3.5-5.0) Chemistry Test 10/16/18 14:25 10/16/18 14:26 10/16/18 14:59 Urine Color Yellow Urine Clarity Slightly-cloudy Urine pH 6.0 pH (4.8-9.5) Urine Specific [place] 1.019 Urine Protein Negative mg/dL (NEGATIVE) Urine Glucose (UA) Negative mg/dL (NEGATIVE) Urine Ketones Negative mg/dL (NEGATIVE) Urine Blood Negative (NEGATIVE) Urine Nitrite Negative (NEGATIVE) Urine Bilirubin Negative (NEGATIVE) Urine Urobilinogen 2.0 mg/dL (0.2-1.9) Urine Leukocyte Esterase Small (NEGATIVE) Urine RBC None /HPF (0-2/HPF) Urine WBC 1 /HPF (0-5/HPF) Urine Squamous Epithelial Cells Many /LPF (</=FEW) Urine Amorphous Crystals Few /HPF Urine Bacteria Few /HPF (NONE-FEW) Urine Mucus Few /HPF (NONE-FEW) Urine HCG, Qualitative Negative (NEGATIVE) White Blood Count 11.5 k/uL (4.5-11.0) Red Blood Count 4.64 M/uL (4.17-5.56) Hemoglobin 9.3 g/dL (12.0-16.0) Hematocrit 30.1 % (34.0-47.0) Mean Corpuscular Volume 65.0 fL (80.0-96.0) Mean Corpuscular Hemoglobin 20.1 pg (26.0-33.0) Mean Corpuscular Hemoglobin Concent 30.9 g/dL (32.0-36.0) Red Cell Distribution Width 18.2 % (11.5-14.5) Platelet Count 325 K/uL (150-450) Mean Platelet Volume 8.8 fL (7.2-11.1) Neutrophils (%) (Auto) 62.6 % (39.4-72.5) Lymphocytes (%) (Auto) 23.0 % (17.6-49.6) Monocytes (%) (Auto) 10.6 % (4.1-12.4) Eosinophils (%) (Auto) 2.4 % (0.4-6.7) Basophils (%) (Auto) 1.4 % (0.3-1.4) Nucleated RBC Relative Count (auto) 0.0 /100WBC Neutrophils # (Auto) 7.2 K/uL (2.0-7.4) Lymphocytes # (Auto) 2.7 K/uL (1.3-3.6) Monocytes # (Auto) 1.2 K/uL (0.3-1.0) Eosinophils # (Auto) 0.3 K/uL (0.0-0.5) Basophils # (Auto) 0.2 K/uL (0.0-0.1) Nucleated RBC Absolute Count (auto) 0.00 K/uL Peripheral Blood Smear Yes Y/N Glomerular Filtration Rate Calc > 60.0 Calcium Level 8.6 mg/dl (8.4-10.2) Total Bilirubin 0.3 mg/dl (0.2-1.3) Aspartate Amino Transf (AST/SGOT) 18 U/L (0-35) Alanine Aminotransferase (ALT/SGPT) 33 U/L (0-56) Alkaline Phosphatase 69 U/L (0-126) Troponin I < 0.012 ng/ml Total Protein 6.2 g/dl (6.3-8.2) Albumin 3.4 g/dl (3.5-5.0) Urinalysis Test 10/16/18 14:25 10/16/18 14:26 Urine Color Yellow Urine Clarity Slightly-cloudy Urine pH 6.0 pH (4.8-9.5) Urine Specific [place] 1.019 Urine Protein Negative mg/dL (NEGATIVE) Urine Glucose (UA) Negative mg/dL (NEGATIVE) Urine Ketones Negative mg/dL (NEGATIVE) Urine Blood Negative (NEGATIVE) Urine Nitrite Negative (NEGATIVE) Urine Bilirubin Negative (NEGATIVE) Urine Urobilinogen 2.0 mg/dL (0.2-1.9) Urine Leukocyte Esterase Small (NEGATIVE) Urine RBC None /HPF (0-2/HPF) Urine WBC 1 /HPF (0-5/HPF) Urine Squamous Epithelial Cells Many /LPF (</=FEW) Urine Amorphous Crystals Few /HPF Urine Bacteria Few /HPF (NONE-FEW) Urine Mucus Few /HPF (NONE-FEW) Urine HCG, Qualitative Negative (NEGATIVE) EKG/Imaging EKG Interpretation 12 lead EKG: Rhythm: normal sinus rhythm, rate 99 [place]: normal QRS: normal ST segments: normal Imaging Exam type: ACUTE ABDOMEN SERIES 3 VIEW History: nausea and vomiting Comparison: Two-view chest August 13, 2018. Findings: The lungs are free of acute effusions infiltrates or edema. There is no evidence of a pneumothorax or pneumomediastinum. The cardiac silhouette is normal in size. The trachea is in midline. Supine and upright views of the abdomen demonstrates a nonspecific bowel gas pattern other than a moderate amount of fecal material in the right-sided the colon. There is no evidence of free intraperitoneal air beneath hemidiaphragms. There are surgical clips right upper quadrant of abdomen. An IUD projects in midline pelvis. IMPRESSION: Lungs free of consolidation Nonspecific bowel gas pattern other than a moderate amount of fecal material in the right-sided the colon Report Dictated By: Micaela Ortez MD at 10/16/2018 4:53 PM ED Course/Re-evaluation Clinical Indication for ER IV: IV Access ED Course Gave normal saline, Zofran and Protonix. She improved. Labs unremarkable as noted. Decision to Disposition Date: Oct 16, 2018 Decision to Disposition Time: 17:08 Depart Departure Latest Vital Signs Vital Signs Date Time Temp Pulse Resp B/P (MAP) Pulse Ox O2 Delivery O2 Flow Rate FiO2 10/16/18 17:00 103 110/75 (87) 97 10/16/18 14:27 98.6 20 Room Air Impression: Primary Impression: Nausea & vomiting Additional Impression: GERD (gastroesophageal reflux disease) Condition: Improved Disposition: HOME OR SELF-CARE New Scripts Omeprazole (OMEPRAZOLE) 20 Mg Capsule. 1 CAP PO QDAY, #30 CAP 0 Refills Prov: LUCILLE MORALES MD 10/16/18 Ondansetron (ONDANSETRON ODT) 4 Mg Tab.rapdis 4 MG PO Q6H PRN for NAUSEA/VOMITING, #20 TAB 0 Refills Prov: LUCILLE MORALES MD 10/16/18 Problem Qualifiers Primary Impression: Nausea & vomiting Vomiting type: unspecified Vomiting Intractability: non-intractable Qualified Codes: R11.2 - Nausea with vomiting, unspecified Additional Impression: GERD (gastroesophageal reflux disease) Esophagitis presence: with esophagitis Qualified Codes: K21.0 - Gastro- esophageal reflux disease with esophagitis LUCILLE MORALES MD Oct 16, 2018 14:28
[2018-10-16] MEDS ORDERED: ONDANSETRON 4 MG/2 ML VIAL IVP ONE (14:40)
[2018-10-16] MEDS ORDERED: NS(*) 0.9% 1000 ML BAG 1,000 ML IV ONE (14:50)
[2018-10-16] MEDS ORDERED: PANTOPRAZOLE SOD 40 MG IV VIAL IVP ONE (14:50)
[2018-10-16 15:10] LABS: PLATELET COUNT, AUTOMATED 325 K/uL (150-450)
--- NOTE | 2018-10-16 16:36 | EKG ---
FACILITY: [facility] PATIENT NAME: SAUMYA DIAZ : [id number] MR: [id number]: [id number] EXAM DATE: ORDERING PHYSICIAN: LUCILLE MORALES TECHNOLOGIST: NIRU Test Reason : NAUSEA Blood Pressure : / mmHG Vent. Rate : 099 BPM Atrial Rate : 099 BPM P-R Int : 162 ms QRS Dur : 088 ms QT Int : 366 ms P-R-T Axes : 053 008 048 degrees QTc Int : 469 ms Normal sinus rhythm Normal ECG When compared with ECG of 13-AUG-2018 11:00, No significant change was found Confirmed by Romel Alexander ([id number]) on 10/16/2018 7:01:55 PM Referred By: CARMEN Confirmed By:Romel Hoff
--- NOTE | 2018-10-16 16:59 | RADIOLOGY IMAGING REPORT ---
FAC[place] [facility] [place] NAME: Marielena Thompson : 1975 MR: [id number] V: [id number] EXAM DATE: ORDERING PHYSICIAN: LUCILLE MORALES TECHNOLOGIST: Location: [facility] Patient: Marielena Thompson : 1975 Visit/Account:[id number] Date of Sevice: 10/16/2018 Exam type: ACUTE ABDOMEN SERIES 3 VIEW History: nausea and vomiting Comparison: Two-view chest August 13, 2018. Findings: The lungs are free of acute effusions infiltrates or edema. There is no evidence of a pneumothorax o r pneumomediastinum. The cardiac silhouette is normal in size. The trachea is in midline. Supine and upright views of the abdomen demonstrates a nonspecific bowel gas pattern other than a mod erate amount of fecal material in the right-sided the colon. There is no evidence of free intraperit peoples air beneath hemidiaphragms. There are surgical clips right upper quadrant of abdomen. An IUD projects in midline pelvis. IMPRESSION: Lungs free of consolidation Nonspecific bowel gas pattern other than a moderate amount of fecal material in the right-sided the c olon Report Dictated By: Micaela Ortez MD at 10/16/2018 4:53 PM Report E-Signed By: Micaela Ortez MD at 10/16/2018 4:55 PM WSN:[id number]
[2018-10-16 17:00] VITALS: BP 110/75
[2018-10-16] MEDS ORDERED: ONDA4TAB9 PO (17:16)
[2018-10-16] MEDS ORDERED: OMEP-125 PO (17:16)
== END 2018-10-16 17:26 | disposition home or self-care (01) ==
LOC: ER 14:36
DX: R11.2 Nausea with vomiting, unspecified (principal); K21.0 Gastro-esophageal reflux disease with esophagitis
CPT/HCPCS: 74022; 81001; 81025; 84484; 85025; 93005; 96361; 96374; 96375; 99284; C9113; J2405; J7030; 82040; 82247; 82310; 82374; 82435; 82565; 82947; 84075; 84132; 84155; 84295; 84450; 84460; 84520

== ENCOUNTER 2019-02-14 14:52 | Outpatient (RCR) | payer MEDICAID ==
[2018-12-19 13:57] VITALS: BP 130/93
[2018-12-19 15:04] LABS: PLATELET COUNT, AUTOMATED 423 K/uL (150-450)
--- NOTE | 2018-12-19 16:42 | [facility] ONCOLOGY NOTE ---
EVENT DATE: December 19, 2018 REFERRING PHYSICIAN Gali Heaton APRN REASON FOR CONSULTATION Evaluation and management of iron deficiency anemia. HEMATOLOGY HISTORY Patient is a 43-year-old female, premenopausal, who moved to the area in [place] recently. The patient has been followed by her primary care, Gali Heaton, with the complaint of fatigue and tiredness, which is getting worse lately. The patient had a CBC done on the November which showed white count 7.8, hemoglobin 9.4, hematocrit 31.6%, MCV was 68, RDW was 17.9%, and the platelets 228,000. She had iron studies done, which showed serum iron of 18, which is low, iron saturation low at 4%, TIBC was 419, but unfortunately, ferritin was not done. Patient denies any heavy period or GI symptoms. Denies any GI bleeding, melena, hematochezia, or hematemesis. PAST MEDICAL HISTORY 1. Hypertension. 2. Hypercholesterolemia. 3. Asthma. PAST SURGICAL HISTORY 1. Appendectomy. 2. Cholecystectomy. FAMILY HISTORY Mother had renal cell carcinoma. SOCIAL HISTORY Patient is with four children. She is looking for a job, and she is involved in [employer]. Denies any abuse of tobacco or illicit drugs, and she drinks occasionally. CURRENT MEDICATIONS 1. Atorvastatin 10 mg daily. 2. Omeprazole 20 mg daily. 3. Calcium carbonate 300 mg as needed. 4. Albuterol one to two puffs inhaler as needed. 5. Hydrochlorothiazide 12.5 mg daily. 6. Lisinopril 10 mg daily. 7. Trazodone 300 mg at bedtime. 8. Prozac 40 mg daily. 9. Wellbutrin XL 300 mg daily. ALLERGIES No known drug allergies. REVIEW OF SYSTEMS CONSTITUTIONAL: No appetite or weight change. No fever, chills, or sweating. No recent infection. HEENT: Ears: No tinnitus or hearing problem. Nose: No nasal discharge or epistaxis. Throat: No sore throat or mouth ulcers. Eyes: No diplopia or visual changes. RESPIRATORY: No shortness of breath. No cough, expectoration, or hemoptysis. CARDIOVASCULAR: No chest pain, orthopnea, or paroxysmal nocturnal dyspnea (PND). No edema. No palpitations. GASTROINTESTINAL: No nausea or vomiting. No diarrhea or constipation. No change in bowel movements. No heartburn or swallowing difficulties. No abdominal pain. No jaundice. No hematemesis, melena, or rectal bleeding. GENITOURINARY: No hematuria or dysuria. MUSCULOSKELETAL: No pain in the muscles, joints, or bones. NEUROLOGICAL: No tingling or numbness in the hands or feet. No headaches or convulsions. HEMATOLOGIC/LYMPHATIC: No bleeding or easy bruising. Patient is weak, tired, and fatigued which are getting worse lately. No enlarged lymph nodes. SKIN: No skin rash or lumps. PSYCHIATRIC: No anxiety or depression. PHYSICAL EXAMINATION GENERAL: Looks stable. Well developed, well nourished, and in no acute distress. VITAL SIGNS: Blood pressure 130/93, pulse 121 per minute, respirations 16 per minute, temperature 98.1, pulse ox 94% on room air. HEENT: Head: Atraumatic. No sinus tenderness to palpation. Eyes: No icterus or conjunctivitis. Mouth and throat: No oral thrush or mucositis. NECK: Supple. No cervical or supraclavicular lymphadenopathy. LUNGS: Clear to auscultation and percussion bilaterally. HEART: Regular rate and rhythm. No gallops, murmurs, clicks, or rubs. ABDOMEN: Soft and lax. No tenderness. No hepatosplenomegaly. No masses. EXTREMITIES: No cyanosis, clubbing, or edema. LYMPHATICS: No peripheral lymphadenopathy. NEUROLOGICAL: Conscious, alert, and oriented times three. No focal motor or sensory deficits. PSYCHIATRIC: Mood and affect appear normal. SKIN: No skin rash, bruise, or purpuric eruption. ASSESSMENT Microcystic anemia, most probably due to iron deficiency. Patient denies any gynecologic bleeding or gastrointestinal bleeding, and for this reason, I am planning to repeat her CBC, reticulocyte count, and iron studies with ferritin. I will refer the patient to Dr. Limon for gastrointestinal workup. I am planning to start iron supplementation with ferrous sulfate 325 mg three times daily after meals. I will see the patient in two months from now with CBC and iron studies with ferritin. If the patient will respond to oral iron supplementation, we will continue iron supplement for a total of six months to replenish her iron stores, but if the patient will not have improvement of her iron studies in two months, then we will investigate for further disease, and I will treat her at that time with intravenous iron supplementation. I explained that to the patient, and she is agreeable with the plan of management. PLAN 1. CBC with retic count. 2. Iron studies with ferritin. 3. Referral to Dr. Limon for GI workup. 4. Ferrous sulfate 325 mg three times daily after meals. 5. Patient to return in two months with CBC and iron studies with ferritin. 6. Patient to contact us for any new concern or complaints. LORI
[2019-02-13 13:10] VITALS: BP 136/101
[2019-02-13 13:12] LABS: PLATELET COUNT, AUTOMATED 343 K/uL (150-450)
[~2019-02-14 14:52] MED LIST changes: +ATOR10TA24 PO; +IRON1TAB10 PO; +LISI-353 PO; +OMEP-125 PO; +ONDA4TAB9 PO
[2019-02-14 15:14] VITALS: BP 127/93
--- NOTE | 2019-02-15 21:59 | [facility] ONCOLOGY NOTE ---
EVENT DATE: February 14, 2019 DIAGNOSIS Iron deficiency anemia. CHIEF COMPLAINT Patient is here today for followup of her iron deficiency anemia. HEMATOLOGY HISTORY Patient is a 44-year-old female, premenopausal, who moved to the area in [place] recently. The patient has been followed by her primary care, Gali Heaton, with the complaint of fatigue and tiredness which are getting worse lately. The patient had a CBC done on the November, which showed white count 7.8, hemoglobin 9.4, hematocrit 31.6%, MCV was 68, RDW was 17.9%, and the platelets 228,000. She had iron studies done, which showed serum iron of 18, which is low, iron saturation low at 4%, TIBC was 419, but unfortunately, ferritin was not done. Patient denies any heavy period or GI symptoms. Denies any GI bleeding, melena, hematochezia, or hematemesis. HISTORY OF PRESENT ILLNESS Patient is here today for followup of her iron deficiency anemia. She is doing fine currently except for having some fatigue. She lost her mom recently. Other than that, she is really asymptomatic. PAST MEDICAL HISTORY 1. Hypertension. 2. Hypercholesterolemia. 3. Asthma. PAST SURGICAL HISTORY 1. Appendectomy. 2. Cholecystectomy. FAMILY HISTORY Mother had renal cell carcinoma. SOCIAL HISTORY Patient is with four children. She is looking for a job, and she is involved in [employer]. Denies any abuse of tobacco or illicit drugs, and she drinks occasionally. CURRENT MEDICATIONS 1. Atorvastatin 10 mg daily. 2. Omeprazole 20 mg daily. 3. Calcium carbonate 300 mg as needed. 4. Albuterol one to two puffs inhaler as needed. 5. Hydrochlorothiazide 12.5 mg daily. 6. Lisinopril 10 mg daily. 7. Trazodone 300 mg at bedtime. 8. Prozac 40 mg daily. 9. Wellbutrin XL 300 mg daily. ALLERGIES No known drug allergies. REVIEW OF SYSTEMS CONSTITUTIONAL: No appetite or weight change. No fever, chills, or sweating. No recent infection. HEENT: Ears: No tinnitus or hearing problem. Nose: No nasal discharge or epistaxis. Throat: No sore throat or mouth ulcers. Eyes: No diplopia or visual changes. RESPIRATORY: No shortness of breath. No cough, expectoration, or hemoptysis. CARDIOVASCULAR: No chest pain, orthopnea, or paroxysmal nocturnal dyspnea (PND). No edema. No palpitations. GASTROINTESTINAL: No nausea or vomiting. No diarrhea or constipation. No change in bowel movements. No heartburn or swallowing difficulties. No abdominal pain. No jaundice. No hematemesis, melena, or rectal bleeding. GENITOURINARY: No hematuria or dysuria. MUSCULOSKELETAL: No pain in the muscles, joints, or bones. NEUROLOGIC: No tingling or numbness in the hands or feet. No headaches or convulsions. HEMATOLOGIC/LYMPHATIC: No bleeding or easy bruising. She feels fatigued and tired. No enlarged lymph nodes. SKIN: No skin rash or lumps. PSYCHIATRIC: No anxiety or depression. PHYSICAL EXAMINATION GENERAL: Looks stable. Well developed, well nourished, and in no acute distress. VITAL SIGNS: Blood pressure 127/93, pulse 80 per minute, respirations 16 per minute, temperature 97.5, pulse oximetry 93% on room air. HEENT: Head: Atraumatic. No sinus tenderness to palpation. Eyes: No icterus or conjunctivitis. Mouth and Throat: No oral thrush or mucositis. NECK: Supple. No cervical or supraclavicular lymphadenopathy. LUNGS: Clear to auscultation and percussion bilaterally. HEART: Regular rate and rhythm. No gallops, murmurs, clicks, or rubs. ABDOMEN: Soft and lax. No tenderness. No hepatosplenomegaly. No masses. EXTREMITIES: No cyanosis, clubbing, or edema. LYMPHATICS: No peripheral lymphadenopathy. NEUROLOGICAL: Conscious, alert, and oriented times three. No focal motor or sensory deficits. PSYCHIATRIC: Mood and affect appear normal. SKIN: No skin rash, bruise, or purpuric eruption. DIAGNOSTIC DATA CBC showed white count 9.2, hemoglobin 14.5, hematocrit 43.2, platelets 343,000. Serum ferritin is 17, which is up from 5, serum iron normal at 218, TIBC normal at 346, iron saturation 63%. ASSESSMENT Iron deficiency anemia, and the patient denies any gynecologic bleeding or gastrointestinal bleeding. Patient was referred to Dr. Limon for gastrointestinal workup. Patient started iron supplementation with ferrous sulfate 325 mg three times daily after meals on the November. She is doing better currently. Her hemoglobin improved from 9.4 and currently 14.5. Her ferritin also improved from 5 to 17. I am planning to continue iron supplementation at the same dosage with ferrous sulfate 325 mg three times daily for another three months, and I will see the patient after that with CBC, iron studies with ferritin, and will decide about further management. Patient is encouraged to see Dr. Limon to do the gastrointestinal workup. PLAN 1. Continue ferrous sulfate 325 mg three times daily with meals. 2. Patient to return in three months with CBC, iron studies with ferritin. 3. Patient to contact us for any new concerns or complaints. MTDD
== END 2019-03-12 12:25 | disposition home or self-care (01) ==
LOC: ONC 14:52
PROVIDERS: ATTEND Internal Medicine Hematology
DX: R50.9 Fever, unspecified (principal); R53.83 Other fatigue; I10 Essential (primary) hypertension; J45.909 Unspecified asthma, uncomplicated; E78.00 Pure hypercholesterolemia, unspecified
CPT/HCPCS: 36415; 82728; 83540; 83550; 85025; 85045; 99202; G0463; 99212